=== PATIENT | male | born 1970 | race Caucasian/White ===

== ENCOUNTER 2018-01-05 12:47 | Emergency (ER) | payer OTHER ==
[~2018-01-05] VITALS: Ht 188 cm; Wt 104.3 kg
== END 2018-01-05 17:45 | disposition home or self-care (01) ==
LOC: ER 12:47
DX: R53.1 Weakness (principal); E86.0 Dehydration

== ENCOUNTER 2018-04-02 10:52 | Emergency (ER) | payer OTHER ==
[~2018-04-02] VITALS: Ht 188 cm; Wt 108.9 kg
== END 2018-04-02 12:41 | disposition home or self-care (01) ==
LOC: ER 10:52
DX: S39.012A Strain of muscle, fascia and tendon of lower back, initial encounter (principal); X50.0XXA Overexertion from strenuous movement or load, initial encounter; Y93.F2 Activity, caregiving, lifting; Y92.39 Other specified sports and athletic area as the place of occurrence of the external cause; Y99.8 Other external cause status